=== PATIENT | female | born 1950 | race Caucasian/White ===

== ENCOUNTER 2016-06-19 03:47 | Observation (INO) ==
--- NOTE | 2016-06-19 03:57 | Emergency Department Note ---
Disposition Clinical Impression: Chest pain Qualifiers: Chest pain type: unspecified Qualified Code(s): R07.9 - Chest pain, unspecified Disposition: Admitted As Inpatient Condition: Fair Time of Disposition: 04:42 Chest Pain HPI - General Chief Complaint: ED Chest Pain Stated Complaint: chest pain Time Seen by Provider: 06/19/16 03:53 Source: patient Mode of arrival: EMS Limitations: no limitations Vital Signs Reviewed: Yes Nursing Notes Reviewed: Yes - History of Present Illness HPI Narrative: 65-year-old female with history of CAD, hypertension, hyperlipidemia arrives [facility] emergency Department complaining of retrosternal chest pain radiating to her left chest that began just prior to arrival. The patient states this woke her from sleep. The patient called EMS at that time. She was administered 2 nitroglycerin which did not relieve her pain. In addition that the patient did take 324 mg aspirin. The patient states there was some associated dyspnea and nausea. The patient did receive 4 mg by mouth Zofran prior to arrival by EMS. The patient also states she had a mild amount of dyspnea with this. The patient denies any fevers, chills, abdominal pain, unilateral weakness. Upon further questioning the patient did state that she had left upper extremity pain that started earlier today as well. The patient also has been coughing throughout the day. No other complaints at this time. The patient does state that she had a cardiac catheter "years ago" but is unsure how long ago. She states her last stress test which she thinks 2 years ago. The patient states that her last cardiac echo was a couple months ago.Denies unilateral leg swelling, recent surgeries, Hx of DVT or PE. Pt complaint: chest pain Onset (ago): Just [employer] Duration: constant Pain Location: substernal Severity: moderate Severity scale (1-10): 8 Quality: tightness Pain Radiation: LUE, back Improves with: nothing Worsens with: nothing Associated symptoms: Reports: nausea, dyspnea, cough Treatments prior to arrival chest pain: aspirin, nitroglycerin, oxygen - Related Data On Oral Contraceptives: No Home Medications Medication Instructions Recorded Confirmed Ibuprofen [Motrin] 800 mg PO Q8HR PRN 10/21/15 06/19/16 Lisinopril [Zestril] 10 mg PO DAILY 10/21/15 06/19/16 Propranolol [Inderal] 20 mg PO TID 10/21/15 06/19/16 Mirtazapine [Remeron] 15 mg PO HS 05/26/16 06/19/16 Baclofen [Lioresal] 10 mg PO HS 06/19/16 06/19/16 HydrOXYzine Pamoate [Vistaril] 50 mg PO ONCE PRN 06/19/16 06/19/16 Previous Rx's Medication Instructions Recorded Ferrous Sulfate 325 mg PO BIDWM #60 tablet 06/03/16 Allergies Allergy/AdvReac Type Severity Reaction Status Date / Time morphine Allergy Itching Verified 07/01/15 13:53 Review of Systems: Review of Systems Constitutional: Denies fevers, chills, night sweats HEENT: Denies headache, Respiratory: Admits to cough, sputum change, denies hemoptysis, admits to dyspnea Cardiac: Admits to chest pain, pressure, denies palpitations, dyspnea on exertion, pedal edema Gastrointestinal: Denies abdominal pain, changes in bowel habits, vomiting, admits to nausea, denies hematemesis, hematochezia Genitourinary: Denies dysuria, hematuria, nocturia, change in frequency, urgency, incontinence Neurologic: Denies headaches, dizziness, syncope, focalized weakness, paraesthesias, weakness Musculoskeletal: Denies back pain, joint pain, myalgias All systems ED: reviewed and negative except as stated. 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 Abdomen: Normal inspection, Normal bowel sounds 4 quadrants, nontender to palpation : Patient deferred Extremities: Normal inspection, full range of motion, appropriate pulses, capillary refill under 2 seconds Neurological: Patient alert and oriented 3, cranial nerves II through XII grossly intact, GCS 15 Skin: Warm, intact, no rashes noted Course Vital Signs Temperature 97.6 F 06/19/16 03:49 Pulse Rate 70 06/19/16 03:49 Respiratory Rate 16 06/19/16 03:49 Blood Pressure 150/89 06/19/16 03:49 O2 Sat by Pulse Oximetry 95 06/19/16 03:49 Temperature 98.0 F 06/19/16 05:34 Pulse Rate 74 06/19/16 05:34 Respiratory Rate 16 06/19/16 05:34 Blood Pressure 130/83 06/19/16 05:34 O2 Sat by Pulse Oximetry 94 06/19/16 05:34 Oxygen Delivery Oxygen Delivery Room Air Chest Pain - MDM Narrative Medical decision making narrative: Workup here in the emergency department reveals small leukocytosis, negative troponin, EKG with nonspecific changes from last year's EKG. Chest x-ray was clear. Given the patient's symptoms and also in relief of nitroglycerin we will admit the patient to the hospital. The patient does not Heart score 5 so this further agrees with the patient's admission. Patient agrees to plan. Accepted by Dr. Robbins. - Medical Records Medical records reviewed: Yes I reviewed the patient's medical records. - Lab Data Lab results reviewed: Yes I reviewed the patient's lab results. Result diagrams: 06/19/16 03:58 06/19/16 03:58 Lab Results 06/19/16 06/19/16 06/19/16 Range/Units 03:58 03:58 03:58 WBC 15.2 H (4.3-11.1) K/mcL RBC 4.51 (3.82-4.97) M/mcL Hgb 11.6 (11.5-15.4) g/dL Hct 36.1 (35.3-44.9) % MCV 80.0 L (83.0-100.0) fL MCH 25.7 L (28.0-33.3) pg MCHC 32.1 (31.6-35.5) g/dL RDW 14.2 (11.5-14.5) % Plt Count 576 H (140-400) K/mcL MPV 9.0 L (9.4-12.4) fL Immature Gran % 0.6 (0-4) % Seg Neutrophils % 65.2 % Lymphocytes % 23.5 % Monocytes % 7.8 % Eosinophils % 2.4 % Basophils % 0.5 % Neutrophils # 9.9 H (1.6-8.9) K/mcL Lymphocytes # 3.6 (0.6-4.6) K/mcL Monocytes # 1.2 (0.0-1.3) K/mcL Eosinophils # 0.4 (0.0-0.6) K/mcL Basophils # 0.1 (0.0-0.2) K/mcL Reactive Lymphocytes Present A (Not Present) Platelet Estimate Increased H (Normal) Large Platelets Present A (Not Present) Sodium 142 (136-145) mEq/L Potassium 3.8 (3.5-4.5) mEq/L Chloride 111 H (98-109) mEq/L Carbon Dioxide 24 (19-29) mEq/L BUN 10 (7-20) mg/dL Creatinine 0.64 (0.57-1.11) mg/dL Est GFR ( Amer) > 60 (> 60) Est GFR (Non-Af Amer) > 60 (> 60) BUN/Creatinine Ratio 16 (6-26) Glucose 113 H (70-99) mg/dL Calculated Osmolality 294 (280-300) Calcium 8.4 L (8.6-10.8) mg/dL Troponin I 0.00 (0-0.03) ng/mL - Radiology Data Radiology results reviewed: Yes I reviewed the patient's radiology results. - EKG Data EKG attestation: Yes I reviewed and interpreted this EKG. EKG results narrative: Heart rate 69 bpm. MT interval 168 ms. QTC 388 ms. Normal axis. Normal sinus rhythm. No ST elevation or ST depression noted. EKG from 10/21/2015 with non-specific changes. Heart Score - Score History: Moderately Suspicious EKG: Non Specific repolarisation Disturbance Age: Greater than 65 Risk Factors: 1-2 risk factors Troponin: Less than normal limit HEART Score Total: 5 Attestation Statement - Attestation Attestation: Dr Washington note: Pt seen in conjunction w/ resident Dr Benoit; Please see his charting for complete documentation; I spent face to face time w/the pt and agree w/ the pt' s treatment and disposition; troponin results noted; chest pain onset at rest just hours ago; sx improved by time of arrival to the ER ;
[2016-06-19 04:09] LABS: Basophils # 0.1 K/mcL (0.0-0.2); Basophils % 0.5 %; Eosinophils # 0.4 K/mcL (0.0-0.6); Eosinophils % 2.4 %; Hematocrit 36.1 % (35.3-44.9); Hemoglobin 11.6 g/dL (11.5-15.4); Immature Granulocytes % 0.6 % (0-4); Lymphocytes # 3.6 K/mcL (0.6-4.6); Lymphocytes % 23.5 %; Mean Corpuscular HGB Conc 32.1 g/dL (31.6-35.5); Mean Corpuscular Hemoglobin 25.7 pg (28.0-33.3); Monocytes # 1.2 K/mcL (0.0-1.3); Monocytes % 7.8 %; Neutrophils # 9.9 K/mcL (1.6-8.9); Platelet Count 576 K/mcL (140-400); Red Blood Count 4.51 M/mcL (3.82-4.97); Red Cell Distribution Width 14.2 % (11.5-14.5); Segmented Neutrophils % 65.2 %
[2016-06-19 04:26] LABS: BUN/Creatinine Ratio 16 (6-26); Blood Urea Nitrogen 10 mg/dL (7-20); Calcium 8.4 mg/dL (8.6-10.8); Carbon Dioxide 24 mEq/L (19-29); Chloride 111 mEq/L (98-109); Glucose 113 mg/dL (70-99); Osmolality,Calculated 294 (280-300); Potassium 3.8 mEq/L (3.5-4.5); Sodium 142 mEq/L (136-145); eGFR For African Americans > 60 (> 60); eGFR For Non-African Americans > 60 (> 60)
[2016-06-19 04:31] LABS: Reactive Lymphocytes Present (Not Present)
[2016-06-19 04:32] LABS: Large Platelets Present (Not Present); Platelet Estimate Increased (Normal)
--- NOTE | 2016-06-19 05:09 | Internal Med History&Physical ---
Date of Encounter: 06/19/16 Time of Encounter: 05:06 Assessment and Plan (1) COPD (chronic obstructive pulmonary disease) Current visit: Yes Status: Chronic no active wheezing Qualifiers: COPD type: emphysema Emphysema type: unspecified Qualified Code(s): J43.9 - Emphysema, unspecified (2) HTN (hypertension) Current visit: Yes Status: Chronic well controlled Qualifiers: Hypertension type: essential hypertension Qualified Code(s): I10 - Essential (primary) hypertension (3) Hyperlipemia Current visit: Yes Status: Chronic chronic Qualifiers: Hyperlipidemia type: mixed hyperlipidemia Qualified Code(s): E78.2 - Mixed hyperlipidemia (4) Leukocytosis Current visit: Yes Status: Acute no acute infection chest x ray negative send ua as well Qualifiers: Leukocytosis type: unspecified Qualified Code(s): D72.829 - Elevated white blood cell count, unspecified (5) Chest pain Current visit: Yes Status: Acute chest pain typical cardiac chest pain now resolved will keep npo and nuclear stress this morning Qualifiers: Chest pain type: unspecified Qualified Code(s): R07.9 - Chest pain, unspecified Internal Medicine - H&P: HPI Chief complaint: chest pain Admitted From: Emergency Dept Plans for Post Hospital Care: Home History of present illness: Ms. Quigley is a 65 year old female Issue with history of COPD, CAD, hypertension, high cholesterol, anxiety and DJD patient had cardiac cath several years ago no intervention done had a stress test done about 3 years ago which was negative per patient patient was awoken up this morning with chest been describes as pressure: radiating left arm and neck call EMS when they arrived she was given 2 sublingual nitroglycerin and some aspirin also has some shortness of breath. She has been now relieved EKG showed nonspecific ST-T changes troponin so far is negative Past Med Surg Social Fam HX - Past Medical History Medical history: COPD, coronary artery disease, hypertension Psychiatric history: anxiety - Social History Smoking Status: Current some day smoker Smokeless Tobacco Status: No Alcohol use: none Drug use: none Internal Medicine - H&P: Meds Ibuprofen [Motrin] 800 mg PO Q8HR PRN 10/21/15 [History] Lisinopril [Zestril] 10 mg PO DAILY 10/21/15 [History] Propranolol [Inderal] 20 mg PO TID 10/21/15 [History] Mirtazapine [Remeron] 15 mg PO HS 05/26/16 [History] Ferrous Sulfate 325 mg PO BIDWM #60 tablet 06/03/16 [Rx] Allergies morphine Allergy (Verified 07/01/15 13:53) Itching All Systems PM: A 10-system review of systems was performed and is negative for pertinent findings except as documented above in the HPI. - Constitutional Constitutional: no chills, no fever(s), no night sweats - EENT Eyes: no change in vision, no discharge, no pain, no photophobia Ears: no ear discharge, no ear pain, no tinnitus Nose, mouth and throat: no dysphagia, no nasal discharge, no neck pain, no sore throat - Cardiovascular Cardiovascular ROS IM: chest pain, dyspnea on exertion - Respiratory Respiratory: dyspnea - Gastrointestinal Gastrointestinal: no abdominal pain, no diarrhea, no hematemesis, no hematochezia, no melena, no nausea, no vomiting - Genitourinary Genitourinary: no change in urinary stream, no dysuria, no flank pain, no hematuria - Musculoskeletal Musculoskeletal ROS IM: no numbness, no tingling - Constitutional Vitals: Temp Pulse Resp BP Pulse Ox 97.6 F 63 16 117/70 92 06/19/16 03:49 06/19/16 04:44 06/19/16 04:44 06/19/16 04:44 06/19/16 04:44 - Head Head exam: Present: atraumatic, normocephalic - Eye Eye exam: Present: PERRL, conjuntiva pink, sclera anicteric Pupils: Present: PERRL - Neck Neck exam general surgery: Present: supple, trachea midline. Absent: lymphadenopathy - Respiratory Respiratory exam: Present: CTAB. Absent: accessory muscle use, rales, rhonchi, wheezes - Cardiovascular Cardiovascular exam: Present: RRR, +S1, +S2. Absent: diastolic murmur, gallop, rubs, systolic murmur - Extremities Exam Extremities exam: Present: warm, radial pulses palpable and symetrical. Absent : calf tenderness, cyanotic, pedal edema Internal Med - H&P Results - Labs CBC & Chem 7: 06/19/16 03:58 06/19/16 03:58
[2016-06-19] MEDS ORDERED: Naloxone 0.4 MG/ML INJ IVP PRN (05:14)
[2016-06-19] MEDS ORDERED: *HR* Morphine 2 MG/ML SYRINGE IVP PRN (05:14)
[2016-06-19] MEDS: Ibuprofen 800 MG TABLET PO PRN ×2 (06:13→18:07)
[2016-06-19] MEDS ORDERED: Regadenoson 0.4 MG/5 ML SYRINGE IVP ONE ×2 (06:21→13:06)
[2016-06-19 11:34] LABS: Bilirubin,Urine Negative (Negative); Blood,Urine Negative (Negative); Clarity,Urine Clear (Clear); Color,Urine Yellow (Yellow); Glucose,Urine (UA) Normal (Normal); Ketones,Urine Negative (Negative); Leukocyte Esterase,Urine Trace (Negative); Nitrite,Urine Negative (Negative); PH,Urine 6.5 pH Units (5.0-8.0); Protein,Urine Trace mg/dL (Neg-Trace); Specific Gravity,Urine 1.024 (1.010-1.025); Urobilinogen,Urine Normal (Normal)
[2016-06-19 11:38] LABS: Bacteria,Urine None Seen per hpf (None-Few); Squamous Epithelial Cell,Urine Many per lpf (None-Few)
[2016-06-19 12:35] LABS: Hyaline Casts,Urine Few per lpf (None-Few); Mucus,Urine Many (Few)
[2016-06-19 12:36] LABS: Renal Epithelial Cells,Urine Few per hpf (None-Few); Transitional Epi Cells,Urine Few per hpf (None-Few)
[2016-06-19 14:49] VITALS: BP 145/85
--- NOTE | 2016-06-19 14:56 | Nuclear Medicine Stress Report ---
Regadenoson Nuclear Stress Name: Iman Quigley Date of Study: 06/19/2016 Date: 1950 Ht: 64.0 in Medical Record#: [id number] Age: 65 Wt: 126.0 lb Gender: Female Order #: [id number] Location: [facility] Room: [facility] Supervising Provider: Cesar Zapien CNP Reading Physician: Hortensia Livingston DO Ordering Physician: Brenda Rae CNP Primary Care Physician: Elian Kinney MD Stress Technologist: Anushka Bro, YESSI,CPFT Cop Examiner: Rayo Cruz Indications: Chest Pain, Shortness of breath Impression: Perfusion imaging was negative for ischemia or infarct. Pharmacologic ECG was negative for ischemia at the level of heart rate achieved. Gated EF = >70%. History: Hypertension History of Smoking History of Coronary Artery Bypass Surgery Stress Test Summary: Stress Test Type: Pharmacologic Regadenoson 0.4mg/5ml given IV Baseline Information: Initial Heart Rate: 99 Blood Pressure: 152/82 Stress Information: Test Terminated Due to (primary): As per protocol Maximum Blood Pressure: 152/88 Maximum Heart Rate: 133 Percent Maximum Heart Rate Achieved: 87 Double Product: Symptoms: Shortness of breath Nuclear Summary: SPECT myocardial perfusion imaging using Tc99m Sestamibi given intravenously was performed at rest and following cardiac stress testing. The resting images were obtained following initial dose of 10.5 mCi. Following stress an additional dose of 31.7 mCi was given at peak exercise or 30 seconds post regadenoson infusion. Medication Given: Time Medication Dose Units Route Findings: Stress Note * Resting ECG demonstrated normal sinus rhythm. * Pharmacologic stress ECG is negative for ischemia at level of heart rate achieved. * No arrhythmias were noted during stress. * Patient had no chest pain during stress. Hemodynamic responses * Normal hemodynamic responses to pharmacologic stress. Study Quality * Study quality was fair. Gated EF > 70% * Gated EF > 70%. Left Ventricle * The left ventricle is not dilated. NORMALS * Normal wall motion. TID * No evidence of transient ischemic dilatation. Lung Uptake * There is no evidence of increase lung uptake. PERFUSION * Homogeneous rest and stress perfusion. Normal wall motion. No evidence for ischemia or infarct. Updated by Hortensia Livingston on 06/19/2016 2:49:37 PM electronically signed on 06/19/2016 2:50:23 PM with status of Final
--- NOTE | 2016-06-19 16:22 | Electrocardiograph Report ---
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
--- NOTE | 2016-06-19 18:17 | Discharge Summary ---
Date of Encounter: 06/19/16 Time of Encounter: 16:30 - Discharge Diagnosis (1) Chest pain Priority: Primary Status: Resolved Comments: Patient denied chest pain throughout this admission. Her chief complaint was a sore throat. Stress test negative. Follow-up outpatient Qualifiers: Chest pain type: unspecified Qualified Code(s): R07.9 - Chest pain, unspecified (2) Sore throat Priority: Primary Status: Acute Comments: Her culture pending however physical examination unremarkable with very mild erythema noted at the back of her throat. No difficulty eating, no stridor. Follow-up outpatient. We will send home with her lozenges. (3) Leukocytosis Priority: Primary Status: Acute Comments: Likely viral sore throat however her urinalysis was abnormal. Ideally, would prefer just kept her overnight to at least have a preliminary urine culture but the patient refused stating she had to go home. We will call her tomorrow with the urine culture is abnormal. Qualifiers: Leukocytosis type: unspecified Qualified Code(s): D72.829 - Elevated white blood cell count, unspecified (4) COPD (chronic obstructive pulmonary disease) Priority: Secondary Status: Chronic Comments: No acute exacerbation. Qualifiers: COPD type: emphysema Emphysema type: unspecified Qualified Code(s): J43.9 - Emphysema, unspecified (5) HTN (hypertension) Priority: Secondary Status: Chronic Comments: Controlled, follow-up outpatient Qualifiers: Hypertension type: essential hypertension Qualified Code(s): I10 - Essential (primary) hypertension (6) Abnormal urinalysis Priority: Primary Status: Acute Comments: Urine culture pending, will call her if abnormal tomorrow, no history of urinary tract infections. - Discharge Medications Prescriptions: Pectin [Throat Drops] 2.8 mg MM Q2H PRN #20 lozenge PRN Reason: Sore Throat Home Medications: Ibuprofen [Motrin] 800 mg PO Q8HR PRN 10/21/15 [History] Lisinopril [Zestril] 10 mg PO DAILY 10/21/15 [History] Propranolol [Inderal] 20 mg PO TID 10/21/15 [History] Ferrous Sulfate 325 mg PO BIDWM #60 tablet 06/03/16 [Rx] Aspirin [Lo-Dose Aspirin EC] 81 mg PO DAILY 06/19/16 [History] Baclofen [Lioresal] 10 mg PO HS 06/19/16 [History] Fluticasone Propionate [Flovent Hfa] 1 puff IH BID 06/19/16 [History] Ipratropium/Albuterol Neb [Duoneb] 3 ml IH Q6HR PRN 06/19/16 [History] Pectin [Throat Drops] 2.8 mg MM Q2H PRN #20 lozenge 06/19/16 [Rx] Allergies/Adverse Reactions: Allergies morphine Allergy (Verified 07/01/15 13:53) Itching Procedures/tests Complete & Pending: Procedures Performed prior 72 hours Category Date Time Status NM scott perf SPECT multi [NM] Routine Exams 06/19/16 05:16 Taken SP pharm nuclear stress Routine Y 06/19/16 07:40 Completed Date of admission: 06/19/16 04:51 Primary care physician: Elian Kinney MD Discharging clinician: Brenda Rae Anticipated date of discharge: 06/19/16 - Patient Status Disposition: Home, Self-Care Condition: Fair Functional capacity at discharge: independent ambulation Overall status at discharge: patient is back to baseline - Discharge Instructions Follow Up With: Elian Kinney MD [Primary Care Provider] - 07/02/16 11:00 am Additional Instructions: Follow-up with primary care provider as scheduled - Diet and Activity Activity: increase activity as tolerated Diet: low fat, low cholesterol, low salt diet Hospital course: Ms. Quigley is a 65 year old female with past medical history of COPD, CAD, hypertension, hyperlipidemia, anxiety, DJD. Patient presented to the emergency department chief complaint she woke up in the morning with chest pain described as pressure and radiating to her left arm and neck. Patient also endorsed shortness of breath with this episode. Workup in the emergency department unremarkable. Chest x-ray consistent with emphysema. She was admitted to the hospitalist service for further evaluation and management. Patient denied chest pain throughout this admission. Troponins negative. She had a nuclear stress test that was negative and revealed an ejection fraction greater than 70% . Patient's chief complaint was she was admitted with sore throat which was relieved with ibuprofen and throat lozenges. Acute coronary syndrome ruled out. She did have an abnormal urinalysis however urine culture pending at time of discharge. We will call her tomorrow if antibiotics are indicated. She does not have a prior history of urinary tract infections. She was discharged home in stable condition with close outpatient follow-up recommended. ITS Impressions Chest X-Ray 06/19/16 03:53 IMPRESSION: Emphysematous changes without acute cardiopulmonary process. D/ / Melanie Payan MD / Melanie Payan MD Interpreting Provider: Melanie Payan MD Nuclear stress test impression: Perfusion imaging was negative for ischemia or infarct. Pharmacologic ECG was negative for ischemia at the level of heart rate achieved. Gated ejection fraction greater than 70%. - Time Spent with Patient Total time spent providing and/or coordinating discharge services: - Constitutional Vitals: Temp Pulse Resp BP Pulse Ox 97.6 F 78 16 145/85 91 06/19/16 14:48 06/19/16 14:48 06/19/16 14:48 06/19/16 14:48 06/19/16 14:48 General appearance: Present: A&O X 3, pleasant, no acute distress, answers questions appropriately - Head Head exam: Present: atraumatic, normocephalic - Eye Eye exam: Present: PERRL, conjuntiva pink, sclera anicteric Pupils: Present: PERRL - Expanded ENT Exam Mouth exam: Absent: muffled voice - Neck Neck exam general surgery: Present: supple, trachea midline. Absent: lymphadenopathy - Respiratory Respiratory exam: Present: decreased breath sounds. Absent: accessory muscle use, rales, respiratory distress, rhonchi, wheezes - Cardiovascular Cardiovascular exam: Present: RRR, +S1, +S2. Absent: diastolic murmur, gallop, rubs, systolic murmur - GI/Abdominal GI/Abdominal exam: Present: normal bowel sounds, soft, no peritoneal signs. Absent: distended, tenderness - Extremities Exam Extremities exam: Present: warm, radial pulses palpable and symetrical. Absent : calf tenderness, cyanotic, pedal edema - Neurological Exam Neurological exam: Present: alert, CN II-XII intact, normal gait, oriented X3, no focal deficits, strengths equal and symetr throughout. Absent: pronater drift, facial droop, speech deficit - Skin Skin exam: Present: dry, intact, normal color, warm
[2016-06-19] MEDS ORDERED: Mirtazapine 15 MG TABLET PO SCH (21:00)
== END 2016-06-19 19:20 | disposition home or self-care (01) ==
LOC: 3BNU 03:47 → EMEROO 03:47 → 3BNU 05:22
PROVIDERS: ADMIT Nurse Practitioner Family; ATTEND Nurse Practitioner Family

== ENCOUNTER 2022-01-05 11:57 | Inpatient (IN) ==
[2022-01-05] MEDS ORDERED: Naloxone 0.4 MG/ML INJ IVP PRN (15:01)
[2022-01-05] MEDS ORDERED: *HR* Heparin 5,000 UNIT/ML VIAL IVP ONE ×2 (15:06→22:04)
[2022-01-05] MEDS ORDERED: *HR* Heparin 5,000 UNIT/ML VIAL IVP PRN ×4 (15:06→22:04)
[2022-01-05] MEDS ORDERED: Nitroglycerin 0.4 MG TAB.SUBL SL PRN (15:10)
[2022-01-05] MEDS ORDERED: Heparin 25,000UNIT/250ML 1/2NS 25,000 UNIT/250 ML IV.SOLN IVC SCH ×2 (15:15→22:15)
[2022-01-05] MEDS ORDERED: Nitroglycerin 1,000 MCG/5 ML VIAL IV ONE (15:40)
[2022-01-05] MEDS ORDERED: Iopamidol - 370 200 ML INFUS..BTL ONE (15:40)
[2022-01-05] MEDS ORDERED: 0.9 % Sodium Chloride 1,000 ML ONE (15:40)
[2022-01-05] MEDS ORDERED: *HR* Heparin 10,000 UNIT/10 ML VIAL ONE (15:40)
[2022-01-05] MEDS ORDERED: Heparin 1,000 UNITS/500 mL 500 ML ONE (15:40)
[2022-01-05] MEDS ORDERED: *HR* FentaNYL (PF) 100 MCG/2 ML VIAL ONE (15:49)
[2022-01-05] MEDS ORDERED: *HR* Midazolam HCl 2 MG/2 ML VIAL ONE (15:49)
[2022-01-05] MEDS: *HR* LORazepam 2 MG/ML VIAL IVP ONE ×2 (16:00→18:18)
[2022-01-05 16:05] LABS: Prothrombin Time 11.6 Seconds (9.4-12.1)
[2022-01-05 16:09] LABS: Heparin anti-factor XA UFH < 0.04 IU/mL (0.30-0.70)
[2022-01-05] MEDS: Acetaminophen 325 MG TABLET PO PRN (18:17)
[2022-01-06 04:23] LABS: Basophils % 0.4 %; Eosinophils # 0.2 K/mcL (0.0-0.6); Eosinophils % 2.6 %; Hematocrit 32.8 % (35.3-44.9); Hemoglobin 10.5 g/dL (11.5-15.4); Immature Granulocytes % 0.2 % (0-4); Lymphocytes # 4.3 K/mcL (0.6-4.6); Lymphocytes % 45.9 %; Mean Corpuscular Hemoglobin 26.2 pg (28.0-33.3); Mean Corpuscular Volume 81.8 fL (83.0-100.0); Mean Platelet Volume 9.4 fL (9.4-12.4); Monocytes # 0.9 K/mcL (0.0-1.3); Monocytes % 9.5 %; Neutrophils # 3.9 K/mcL (1.6-8.9); Platelet Count 377 K/mcL (140-400); Red Blood Count 4.01 M/mcL (3.82-4.97); Red Cell Distribution Width 14.9 % (11.5-14.5); Segmented Neutrophils % 41.4 %; White Blood Count 9.4 K/mcL (4.3-11.1)
[2022-01-06 04:43] LABS: Calcium 8.4 mg/dL (8.6-10.3); Potassium 3.6 mEq/L (3.5-5.1)
[2022-01-06 07:26] VITALS: BP 77/51; PULSE 91; TEMP 97.8; O2SAT 94
[2022-01-06] MEDS ORDERED: Aspirin Enteric Coated 81 MG Tablet PO SCH (09:00)
[2022-01-06] MEDS: Acetaminophen 325 MG TABLET PO PRN (09:11)
[2022-01-06] MEDS ORDERED: 0.9 % Sodium Chloride 250 ML IVC SCH (11:45)
== END 2022-01-06 12:45 | disposition home or self-care (01) | DRG 287 ==
LOC: 3NENU
PROVIDERS: ADMIT Internal Medicine; ATTEND Internal Medicine